=== PATIENT | female | born 1995 | race Caucasian/White ===

== ENCOUNTER → 2023-09-01 10:07 | Outpatient (REF) | payer BC, SELFPAY | LOC: CPAP 10:07 | PROVIDERS: ATTENDING PHYSICIAN Nurse Practitioner Adult Health | DX: N87.9 Dysplasia of cervix uteri, unspecified (principal) | CPT/HCPCS: G0123 ==

== ENCOUNTER → 2024-08-06 13:21 | Outpatient (REF) | payer BC, SELFPAY | LOC: HWRAD 13:21 | PROVIDERS: ATTENDING PHYSICIAN Nurse Practitioner Adult Health | DX: N83.209 Unspecified ovarian cyst, unspecified side (principal) | CPT/HCPCS: 76830; 76856 ==